=== PATIENT | male | born 1965 | race Two or more races ===

== ENCOUNTER 2019-07-31 10:53 | Outpatient (CLI) | payer OTHER ==
[2019-07-31] MEDS ORDERED: CIPRODEX OTIC7.5 ML OTIC ×2 (11:31)
== END 2019-07-31 17:59 | disposition home or self-care (01) ==
LOC: OFIC 805 10:53
PROVIDERS: ATTEND Otolaryngology
DX: R42 Dizziness and giddiness (principal); H92.01 Otalgia, right ear; H61.23 Impacted cerumen, bilateral

== ENCOUNTER 2019-08-06 09:06 | Outpatient (CLI) | payer OTHER ==
[~2019-08-06 09:06] MED LIST: CIPRODEX OTIC7.5 ML OTIC
== END 2019-08-06 12:44 | disposition home or self-care (01) ==
LOC: OFIC 805 09:06
PROVIDERS: ATTEND Otolaryngology
DX: R42 Dizziness and giddiness (principal); H61.23 Impacted cerumen, bilateral